=== PATIENT | female | born 1995 | race Caucasian/White ===

== ENCOUNTER → 2017-11-14 07:09 | Outpatient (CLI) | payer OTHER, SELFPAY ==
--- NOTE | 2017-11-14 07:21 | MRI_ITS ---
STUDY: MRI LEFT FOREFOOT WITHOUT CONTRAST REASON FOR EXAM: Painful great toe and ball of foot, splinter removal from ball of foot, injury 1 week ago. Evaluate for abscess, plantar plate tear. TECHNIQUE: Standardized fat and water weighted pulse sequences were obtained in all 3 orthogonal planes. COMPARISON: None. FINDINGS: Normal metatarsophalangeal joint of the hallux without demonstrated plantar plate injury. Normal tibial and fibular sesamoids, with normal sesamoids-first metatarsal articulations. Normal interphalangeal joint of the hallux. Normal proximal and distal phalanges of the great toe. Normal medial and lateral heads of the flexor hallucis brevis tendons. Normal flexor and extensor hallucis longus tendons. Normal second through fifth metatarsophalangeal (MTP) joints without demonstrated plantar plate injury. Normal interphalangeal joints of the second through fifth toes. Normal proximal, middle and distal phalanges of the second through fifth toes. Normal first through fourth intermetatarsal spaces. Normal flexor and extensor tendons of the second through fifth toes. Normal metatarsals. Normal intrinsic muscles of the forefoot. There is mild edema in the subcutis adipose space plantar to the second metatarsophalangeal joint (inversion recovery sagittal image 11) without fluid collection to indicate abscess. There is no signal void to indicate foreign body. MRI/Lower Ext/No Jt/w/o IMPRESSION: Mild edema in the subcutis adipose space plantar to the second metatarsophalangeal joint without soft tissue abscess or osteomyelitis. No demonstrated plantar plate injury. Electronically Signed: Min Lucero MD at 9:03 EST Tel , Service support ,
== END ==
PROVIDERS: Family Provider Family Medicine; PCP Family Medicine; Visit Provider Podiatrist Foot & Ankle Surgery
DX: S89.92XA Unspecified injury of left lower leg, initial encounter (principal); L02.612 Cutaneous abscess of left foot; L03.032 Cellulitis of left toe
CPT/HCPCS: 73718

== ENCOUNTER → 2019-07-10 11:41 | Outpatient (CLI) | payer OTHER, SELFPAY ==
[2016-08-02 18:54] VITALS: BMI 21.4
[2019-07-10 15:50] LABS: Absolute Lymphocyte Count 2.92 X10^3/uL (0.83-4.51); Absolute Neutrophil Count 2.1 X10^3/uL (2.0-7.7); Basophil# 0.07 X10^3/uL; Basophil% 1.2 % (0-1); Eosinophil# 0.22 X10^3/uL; Eosinophils% 3.9 % (0-5); Hematocrit 39.5 % (37-47); Hemoglobin 12.7 g/dL (12.0-15.0); Lymphocyte # 2.92 X10^3/ul (4.0); Lymphocyte % 51.1 % (19-41); Mean Corp Hgb Conc 32.2 g/dL (32-36); Mean Corpuscular Hgb 30.1 pg (27.0-32.0); Mean Corpuscular Volume 93.6 fL (81-99); Mean Platelet Vol. 11.4 fl (6.2-12.0); Monocyte# 0.35 X10^3/uL; Monocyte% 6.1 % (0-10); NRBC Flagged by Analyzer 0 % (0-5); Neutrophil # 2.14 X10^3/uL (2.7-7.7); Neutrophil % 37.5 % (47-70); POSITIVE COUNT YES; RBC Distribution Width CV 12.6 % (11.6-14.6); RBC Distribution Width SD 43.1 fl (35.1-43.9); Red Blood Count 4.22 M/mm3 (4.2-5.4); White Blood Count 5.7 K/mm3 (4.4-11.0)
[2019-07-10 15:51] LABS: Differential Indicated SCAN CRITERIA MET
[2019-07-10 15:58] LABS: Erythrocyte Sedimentation Rate 3 mm/hr (0-20)
[2019-07-10 16:13] LABS: ALB/GLOB Ratio 1.3 RATIO (0.9-2.4); AST(SGOT) 29 U/L (15-37); Alanine Aminotransfer ALT/SGPT 187 U/L (13-56); Albumin, Serum 4.1 g/dL (3.2-5.0); Alkaline Phosphatase 64 U/L (45-117); Anion Gap 8 (5-15); BUN 8 mg/dL (7-18); BUN/Creat Ratio 10.7 RATIO (10-20); CRP < 2.90 mg/L (0.0-3.0); Chloride 106 mmol/L (98-107); Creatinine, Serum 0.75 mg/dL (0.55-1.02); EST Glomerular Filtration Rate 103 mL/min (>60); Est Glom Filt Rate - Afr Amer 125 mL/min (>60); Globulin 3.1 g/dL (2.2-4.2); Glucose 69 mg/dL (74-106); Potassium 3.5 mmol/L (3.5-5.1); Protein, Total 7.2 g/dL (6.4-8.2); Sodium Level 143 mmol/L (136-145)
[2019-07-10 16:23] LABS: Differential Comment SCANNED; Platelet Estimate ADEQUATE (ADEQ)
[2019-07-15 16:07] LABS: Cytoplasmic Ab (C-ANCA) <1:20 titer (Neg:<1:20); Endomysial Antibody IgA Negative (Negative); Immunoglobulin A 77 mg/dL (87-352)
[2019-07-16 08:45] LABS: C1 EST Inhibitor, Functional 85 (.); Perinuclear Ab (P-ANCA) <1:20 titer (Neg:<1:20); t-Transglutaminase IgA <2 U/mL (0-3)
== END ==
PROVIDERS: Family Provider Family Medicine; PCP Family Medicine; Visit Provider Family Medicine
DX: R10.9 Unspecified abdominal pain (principal); L98.9 Disorder of the skin and subcutaneous tissue, unspecified; L50.0 Allergic urticaria
CPT/HCPCS: 36415; 80053; 82784; 83516; 85025; 85652; 86140; 86160; 86161; 86255; 86256

== ENCOUNTER 2023-11-17 18:13 | Emergency (ER) | payer OTHER, SELFPAY ==
[2023-11-17 18:15] VITALS: BP 140/96; PULSE 86; RESP 16; TEMP 36.3; O2SAT 97; BMI 19.5
--- NOTE | 2023-11-17 19:09 | EX.ED.DYSGE1 ---
HPI <HAYDEE Bloom - Last Filed: 11/17/23 20:22> History of Present Illness Chief Complaint: Lower Extremity Injury Narrative Narrative: Patient was moving car ramps into storage 2 days ago when she tripped and fell striking her left mckoy on the ramp. She had a focal area of swelling and bruising but was concerned because the bruising started spreading down her leg. She is able to ambulate and has no weakness or paresthesias. She is not on blood thinners. PFSH <HAYDEE Bloom - Last Filed: 11/17/23 20:22> PFSH Home Medications No Known/Unobtainable [No Known Home Medications] 08/02/16 [History Last Taken Unknown] Allergy/AdvReac Type Severity Reaction Status Date / Time latex Allergy Mild RASH Verified 11/17/23 18:15 Social History Smoking Status: Former smoker ROS <HAYDEE Bloom Last Filed: 11/17/23 20:22> ROS ED ROS Narrative Neuro: Negative for motor/sensory dysfunction. Skin: Negative for wound. Musc: Positive for left leg pain, trauma. Heme: Negative for easy bruising, bleeding, lymphadenopathy. EXAM <HAYDEE Bloom Last Filed: 11/17/23 20:22> Physical Exam Narrative Exam Narrative: CONST: Patient sitting in no acute distress. EYES: Normal inspection. NECK: Normal inspection. SKIN: Color normal, no abrasions or lacerations EXTREMITIES: Hematoma and tenderness on left proximal tibia with scattered ecchymosis down the leg towards the ankle. Full range of motion of knee ankle and foot, no tenderness of the joints. 5/5 strength, normal sensation, 2+ DP pulse. NEURO: Oriented x4. PSYCH: Normal affect. Const Vital Signs: 11/17/23 18:15 Temperature 97.4 F L Temperature Source Temporal Pulse Rate 86 Respiratory Rate 16 Blood Pressure 140/96 H Blood Pressure Mean 110 Pulse Ox 97 Oxygen Delivery Method Room Air <Dr. Wesly Dunbar DO - Last Filed: 11/17/23 19:35> Physical Exam Const Vital Signs: 11/17/23 18:15 Temperature 97.4 F L Temperature Source Temporal Pulse Rate 86 Respiratory Rate 16 Blood Pressure 140/96 H Blood Pressure Mean 110 Pulse Ox 97 Oxygen Delivery Method Room Air MDM <HAYDEE Bloom - Last Filed: 11/17/23 20:22> MDM Radiography Diagnostic Testing: Clinical Impression(s) from Imaging Studies Tibia/Fibula X-Ray 11/17/23 19:15 IMPRESSION: Mild anterior soft tissue swelling. No acute osseous abnormalities. Electronically Signed: Ruddy Yung at 20:11 EST , ED attending interpretation of left tibia/fibula shows no acute fracture or dislocation. <Dr. Wesly Dunbar DO - Last Filed: 11/17/23 19:35> MDM Radiography Diagnostic Testing: Clinical Impression(s) from Imaging Studies Tibia/Fibula X-Ray 11/17/23 19:15 IMPRESSION: Mild anterior soft tissue swelling. No acute osseous abnormalities. Electronically Signed: Ruddy VelásquezAndrés AvaDO piotr at 20:11 EST , Treatment and Re-Evaluation :: I have personally performed a face to face assessment of the patient and have reviewed the LEXX Note. I performed a substantive portion of the visit including all aspects of the following. My zeng findings include: History: Patient presents with bruising and swelling to the lower left leg that began 2 days ago. Patient states she tripped over a car ramp. Patient states that she noted some swelling and bruising to the proximal left leg. Patient states the bruising is progressing down her leg. Patient denies any new trauma or injury. Patient admits to some tingling at the initial site of injury. Patient describes her pain as dull at times and sharp at times. Patient states ice has been helping. Exam: Vital signs are stable. Patient is afebrile. Patient is in no acute distress. Musculoskeletal exam reveals small superficial abrasion of the anterior aspect of the proximal tibia on the left. There is some edema and ecchymosis in this area. There is some ecchymosis spreading distally to her lower leg. There is no active bleeding noted. There is full range of motion. Strength is 5/5 bilaterally in the lower extremities. There are no sensory deficits noted. Pedal pulses are equal bilaterally. Medical Decision Making: Differential diagnosis includes contusion, and occult fracture. X-rays of the left tib-fib were obtained to assess for occult fracture. There are 2 views. On my independent interpretation, there is no acute fracture. There are no foreign bodies noted. There is no soft tissue swelling noted. Radiologist also interpreted the x-rays and agrees. Patient was advised that this is most likely hematoma and the spreading of the ecchymosis distally is normal. Patient was instructed to continue to ice and elevate the left leg. Patient was instructed to continue Tylenol and ibuprofen as needed for pain. Patient was instructed to follow-up with her primary care physician in 5 to 7 days. Patient and mother understood and were agreeable with the plan. All questions were answered. Discharge Plan Triage Chief Complaint: Lower Extremity Injury ED Midlevel Provider: Betzy Wan ED Provider: Wesly Dunbar Dx/Rx/DC Orders Clinical Impression: Hematoma of left lower leg Instructions: Bruises (Contusions), ED Soft Tissue Contusion Prescriptions: No Action No Known Home Medications Primary Care Provider: Jose Enrique Gagnon Referrals: Jose Enrique Gagnon, [Primary Care Provider] - Activity Restrictions/Additional Instructions: The hematoma and bruising can take several weeks to resolve. With time the bruising moves down your leg due to gravity. This is nothing to be concerned about. Disposition Disposition: Home, Self Care Discharge Date/Time: 11/17/23 19:36
--- NOTE | 2023-11-17 19:15 | RAD_ITS ---
EXAM: XR LEFT TIBIA AND FIBULA, 2 VIEWS CLINICAL INDICATION: pain TECHNIQUE: Frontal and lateral views of the left tibia and fibula. COMPARISON: No relevant prior studies available. FINDINGS: BONES/JOINTS: No significant abnormality. No acute fracture. No subluxation. Normal alignment. Preservation of the joint space. No sclerotic or destructive changes observed. SOFT TISSUES: Mild anterior soft tissue swelling. No radiopaque foreign body. RAD/Tibia & Fibula 2 Views IMPRESSION: Mild anterior soft tissue swelling. No acute osseous abnormalities. Electronically Signed: Ruddy Yung DO at 20:11 EST ,
--- OUTSIDE RECORDS SUMMARY | 2023-11-17 19:34 | XMS RPT_ITS | CCD ---
Author Name Unknown Address [address] [place] [address] Organization [facility] Care Team Providers Care Bottling Room Worker Name Role Phone Yvon Cagle MD Primary Care Provider CHANTAL TABOR Referring Unavailable YVON CAGLE Primary Care Unavailable YVON CAGLE Primary Care Unavailable Allergies Allergy Classification Reported Allergen(s) Allergy Type Date of Onset Reaction(s) Facility (3 sources) House dust mite; Translations: [DUST MITES] Propensity to adverse reactions 11-13-2006 [facility] Work Phone: (3 sources) Mold Extract; Translations: [MOLD] Drug Allergy 11-13-2006 [facility] Work Phone: (3 sources) Tree; Translations: [TREES] Propensity to adverse reactions 11-13-2006 [facility] Work Phone: (3 sources) Ragweed; Translations: [RAGWEED] Propensity to adverse reactions 11-14-2006 [facility] Medications Current Medications Medication Drug Class(es) Dates Sig (Normalized) Sig (Original) amoxicillin 875 mg / clavulanate 125 mg oral tablet (2 sources) Penicillin-class Antibacterial Start: 06-08-2023 End: 06-15-2023 take 1 tablet by mouth twice daily amoxicillin-clavulan ic acid (AUGMENTIN) 875-125 mg per tablet Indications: Sinobronchitis Take 1 tablet by mouth twice daily for 7 days. 14 tablet 0 06/08/2023 06/15/2023 Active Problems Active Problems Problem Classification Problem Date Documented Da te Episodic/Chronic Other lower respiratory disease (1 source) Cough; Translations: [Acute cough] 06-08-2023 Episodic Other upper respiratory infections (1 source) Chronic sinusitis; Translations: [Chronic sinusitis, unspecified] 06-08-2023 Chronic Past or Other Problems Problem Classification Problem Date Documented Da te Episodic/Chronic Other complications of (2 sources) RhD negative; Translations: [Other specified related conditions, first trimester] Onset: 08-30-2016 08-30-2016 Episodic Other and delivery including normal (2 sources) Normal ; Translations: [Encounter for supervision of normal first , first trimester] Onset: 07-29-2016 07-29-2016 Episodic Residual codes; unclassified (2 sources) FH: Congenital anomaly; Translations: [Family history of other congenital malformations, deformations and chromosomal abnormalities] Onset: 07-14-2016 10-05-2021 Episodic Screening and history of mental health and substance abuse codes (2 sources) Stopped smoking; Translations: [Personal history of nicotine dependence] Onset: 07-14-2016 10-05-2021 Episodic Results Test Name Value Interpretation Reference Range Facil ity Vital Signs Date Time Vital Sign Value Performing Clinician Faci lity 06-08-2023 17:41-0400 Body temperature 98.8 [degF] Chantal Tabor APRN.HOSPITAL NURSE LIAISON Work Phone: [facility] 06-08-2023 17:41-0400 Body weight 68.77 kg Chantal Tabor APRN.CNP Work Phone: [facility] 06-08-2023 17:41-0400 Diastolic blood pressure 88 mm[Hg] Chantal Tabor APRN.HOSPITAL NURSE LIAISON Work Phone: [facility] 06-08-2023 17:41-0400 Heart rate 129 /min Chantal Tabor APRN.HOSPITAL NURSE LIAISON Work Phone: [facility] 06-08-2023 17:41-0400 Respiratory rate 18 /min Chantal Tabor APRN.HOSPITAL NURSE LIAISON Work Phone: [facility] 06-08-2023 17:41-0400 SaO2% (BldA) [Mass fraction] 99 % Chantal Tabor APRN.HOSPITAL NURSE LIAISON Work Phone: [facility] 06-08-2023 17:41-0400 Systolic blood pressure 142 mm[Hg] Chantal Tabor APRN.HOSPITAL NURSE LIAISON Work Phone: [facility] Encounters Encounter Date Encounter Type Care Provider Facility Start: 06-08-2023 End: 06-08-2023 ambulatory YVON CAGLE Facility:[facility] Start: 06-08-2023 End: 06-08-2023 Patient encounter procedure Chantal Tabor APRN.CNP Work Phone: [facility] Procedures Date Procedure Procedure Detail Performing Clinician Start: 06-08-2023 Radiologic exam ches t 2 views Chantal Tabor APRN.HOSPITAL NURSE LIAISON Work Phone: Plan of Treatment Date Care Activity Detail Author Start: 06-09-2023 Influenza vaccination INFLUENZA (#1) [facility] Start: 05-21-2023 PAP TESTING PAP TESTING [facility] Start: 10-09-2022 DEPRESSION ASSESSMENT DEPRESSION ASS ESSMENT [facility] Start: 06-19-2019 Urine microalbumin profile DTAP,TDAP,TD (7 - Td or Tdap) [facility] Start: 2015 HEPATITIS C SCREENING HEPATITIS C SC MANUEL [facility] Start: 2011 PEDS TO ADULT TRANSI TION ANNUAL ASSESSMENT PEDS TO ADULT TRANSITION ANNUAL ASSESSMENT [facility] Start: 2009 PEDS TO ADULT TRANSI TION INITIAL DISCUSSION PEDS TO ADULT TRANSITION INITIAL DISCUSSION [facility] Start: 2003 PNEUMOCOCCAL (1 - PCV) PNEUMOCOCCAL (1 - PCV) [facility] Start: 03-15-1998 COVID-19 VACCINE (#1) COVID-19 VACCI NE (#1) [facility] Immunizations Immunization Date Immunization Notes Care Provider Chang brown 03-13-2013 human papilloma viru s vaccine, quadrivalent Chantal Tabor HEATER PLANER OPERATOR.HOSPITAL NURSE LIAISON Work Phone: [facility] 03-13-2013 varicella virus vaccine Naseem Tabor HEATER PLANER OPERATOR.HOSPITAL NURSE LIAISON Work Phone: [facility] 05-25-2010 human papilloma viru s vaccine, quadrivalent Chantal Tabor HEATER PLANER OPERATOR.HOSPITAL NURSE LIAISON Work Phone: [facility] Work Phone: 06-19-2009 human papilloma viru s vaccine, quadrivalent Chantal Tabor HEATER PLANER OPERATOR.HOSPITAL NURSE LIAISON Work Phone: [facility] 06-19-2009 Meningococcal, MCV4, unspecified conjugate formulation(groups A, C, Y and W-135) Chantal Leander HEATER PLANER OPERATOR.[facility] Work Phone: [facility] 06-19-2009 tetanus toxoid, redu bertha diphtheria toxoid, and acellular pertussis vaccine, adsorbed Chantal Leander HEATER PLANER OPERATOR.HOSPITAL NURSE LIAISON Work Phone: [facility] 08-22-2008 influenza virus vaccine, unspecified formulation Chantal Leander HEATER PLANER OPERATOR.HOSPITAL NURSE LIAISON Work Phone: [facility] Work Phone: 08-14-2006 influenza virus vaccine, unspecified formulation Chantal Leander HEATER PLANER OPERATOR.[facility] Work Phone: [facility] Work Phone: 09-22-2005 influenza virus vaccine, unspecified formulation Chantal Leander HEATER PLANER OPERATOR.[facility] Work Phone: [facility] Work Phone: 05-20-2003 diphtheria, tetanus toxoids and acellular pertussis vaccine Chantal Leander HEATER PLANER OPERATOR.HOSPITAL NURSE LIAISON Work Phone: [facility] Work Phone: 05-20-2003 measles, mumps and rubella virus vaccine Chantal Leander HEATER PLANER OPERATOR.HOSPITAL NURSE LIAISON Work Phone: [facility] Work Phone: 05-20-2003 poliovirus vaccine, inactivated Chantal Leander HEATER PLANER OPERATOR.[facility] Work Phone: [facility] Work Phone: 05-06-1999 diphtheria, tetanus toxoids and acellular pertussis vaccine Chantal Leander HEATER PLANER OPERATOR.HOSPITAL NURSE LIAISON Work Phone: [facility] Work Phone: 05-06-1999 measles, mumps and rubella virus vaccine Chantal Leander HEATER PLANER OPERATOR.HOSPITAL NURSE LIAISON Work Phone: [facility] Work Phone: 05-06-1999 poliovirus vaccine, inactivated Chantal Leander HEATER PLANER OPERATOR.HOSPITAL NURSE LIAISON Work Phone: [facility] Work Phone: 02-12-1999 haemophilus influenz ae type b vaccine, HbOC conjugate Chantal Tabor HEATER PLANER OPERATOR.HOSPITAL NURSE LIAISON Work Phone: [facility] Work Phone: 02-12-1999 varicella virus vaccine Naseem Tabor HEATER PLANER OPERATOR.HOSPITAL NURSE LIAISON Work Phone: [facility] Work Phone: 03-24-1998 diphtheria, tetanus toxoids and acellular pertussis vaccine Chantal Tabor HEATER PLANER OPERATOR.HOSPITAL NURSE LIAISON Work Phone: [facility] Work Phone: 03-24-1998 haemophilus influenz ae type b vaccine, HbOC conjugate Chantal Leander HEATER PLANER OPERATOR.[facility] Work Phone: [facility] Work Phone: 03-24-1998 hepatitis B vaccine, pediatric or pediatric/adolescent dosage Chantal Leander HEATER PLANER OPERATOR.[facility] Work Phone: [facility] Work Phone: 01-09-1998 diphtheria, tetanus toxoids and acellular pertussis vaccine Chantal Tabor HEATER PLANER OPERATOR.[facility] Work Phone: [facility] Work Phone: 01-09-1998 haemophilus influenz ae type b vaccine, HbOC conjugate Chantal Tabor HEATER PLANER OPERATOR.[facility] Work Phone: [facility] Work Phone: 01-09-1998 trivalent poliovirus vaccine, live, oral Chantal Tabor HEATER PLANER OPERATOR.HOSPITAL NURSE LIAISON Work Phone: [facility] Work Phone: 1997 trivalent poliovirus vaccine, live, oral Chantal Tabor HEATER PLANER OPERATOR.HOSPITAL NURSE LIAISON Work Phone: [facility] Work Phone: 1997 diphtheria, tetanus toxoids and acellular pertussis vaccine Chantal Tabor HEATER PLANER OPERATOR.HOSPITAL NURSE LIAISON Work Phone: [facility] Work Phone: 1997 haemophilus influenz ae type b vaccine, HbOC conjugate Chantal Tabor APRN.HOSPITAL NURSE LIAISON Work Phone: [facility] Work Phone: 1997 hepatitis B vaccine, pediatric or pediatric/adolescent dosage Chantal Tabor HEATER PLANER OPERATOR.HOSPITAL NURSE LIAISON Work Phone: [facility] Work Phone: 1997 hepatitis B vaccine, pediatric or pediatric/adolescent dosage Chantal Tabor HEATER PLANER OPERATOR.HOSPITAL NURSE LIAISON Work Phone: [facility] Work Phone: Payers Date Payer Category Payer Private Health Insurance [employer] A ETNA PPO [id number] 2021-Present [phone] [address] [place] [address] PPO 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) [facility] Start: 2020 End: 06-08-2023 History of Social function [facility] Start: 2020 End: 06-08-2023 Tobacco use panel [facility] National Score (1-10 0), lower number is lower risk Not on file [facility] Start: 1997 Sex Assigned At Female C [facility] Start: 06-10-2020 Gender identity Identifies as female gender (finding) [facility] Start: 06-10-2020 Sexual orientation Heterosexual (brandon oreilly) [facility] Note 06-09-2023 Telephone Encounter - Madelyn Arnold MA - 06/09/2023 7:27 AM EDTTelephone Encounter - Chantal Tabor APRN.CNP - 06/08/2023 7:06 PM EDT Note Date & Type Note Facility 06-09-2023 Miscellaneous Notes Formattin g of this note might be different from the original. Patient notified of results as listed below, verbalized understanding. Madelyn Arnold MA Please notify that no pneumonia on xray. Will order antibiotics for prolonged illness. Follow up with primary care Monday if symptoms persisting. documented in this encounter [facility] Progress note 06-08-2023 Note Date & Type Note Facility 06-08-2023 Note HNO ID: [id number] Author: Gabi Caputo RT(R) Service: ? Author Type: Briquette Machine Operator Type: Progress Notes Filed: 06/08/2023 6:29 PM Note Text: Radiology Service Progress Note PATIENT NAME: Gesron Verduzco DATE OF SERVICE: June 08, 2023 TIME: 6:20 PM PATIENT IDENTITY VERIFICATION COMPLETED USING TWO (2) IDENTIFIERS: Name and Date of confirmed by patient verbally. FALL SCREENING: Has the patient had 2 falls in the last year or 1 fall with injury or currently using an Ambulatory Assistive Device (Walker, Cane, Wheelchair, Crutches, etc.)? No PATIENT GENDER DATA: Female. status: : No status: NO. PATIENT RELEVANT IMPLANT DATA REVIEWED: Yes RADIOLOGY DEPARTMENT: General X-ray: Exam(s) Completed: Chest X-Ray PERIPHERAL IV DATA: Not applicable SIGNED BY: RT Chung(R) June 08, 2023 6:20 PM [facility] Progress note 06-08-2023 Note Date & Type Note Facility 06-08-2023 Note HNO ID: [id number] Author: Chantal Tabor APRN.CNP Service: ? Author Type: Nurse Practitioner Type: Progress Notes Filed: 06/08/2023 7:09 PM Note Text: Subjective HPI HPI Gerson Verduzco is a 27 year old female who presents today for CC of cough, fever, vomiting. This started 10 days ago. Has tried otc medication for relief. Symptoms are worsened by nothing. No known sick exposures. Smoker. Denies possibility of being . .Patient presents with: Cough: Cough, congestion, fever and vomiting x 10 days PAST MEDICAL HISTORY Diagnosis Date fracture 2001 elbow, surgical pinning, playground accident PMH - PAST MEDICAL HISTORY OF Fx. elbow PMH - PAST MEDICAL HISTORY OF Pneumococcal Bacteremia PMH - PAST MEDICAL HISTORY OF 2002 normal color vision PAST SURGICAL HISTORY Procedure Laterality Date DILATION AND CURETTAGE DXAND/THER NONOBSTETRIC 09/2016 [facility] PAST SURGICAL HISTORY OF 2001 left elbow pinning s/p fracture TONSILLECTOMY AND ADENOIDECTOMY AGE 14/> 01/02/2012 ALLERGIES Dust Mites, Mold, Ragweed, and Tree Pollen [Trees] MEDICATIONS No prescriptions on file. FAMILY HISTORY Problem Relation Age of Onset Allergies Mother Allergic rhinitis Thyroid Father goiter Heart Father Diabetes Maternal Grandmother obesity Asthma Maternal Grandmother Hypertension Maternal Grandmother Kidney Disease Maternal Grandmother Headache Paternal Grandmother migraine Cancer Paternal Grandmother maternal and paternal side other (sickle cell) Paternal Grandmother paternal side Social History Tobacco Use Smoking status: Every Day Years: .5 Types: Cigarettes Start date: 07/07/2016 Smokeless tobacco: Never Vaping Use Vaping Use: Never used Substance Use Topics Alcohol use: No Drug use: No Review of Systems Constitutional: Positive for fever. HENT: Positive for congestion and sinus pain. Negative for ear pain, nosebleeds and sore throat. Respiratory: Positive for cough and sputum production. Negative for shortness of breath and wheezing. Cardiovascular: Negative for chest pain. Gastrointestinal: Positive for nausea and vomiting. Negative for abdominal pain and diarrhea. Genitourinary: Negative for dysuria and urgency. Musculoskeletal: Negative for neck pain. Skin: Negative for itching and rash. Neurological: Positive for dizziness. Objective Blood pressure 142/88, pulse (!) 129, temperature 37.1 ?C (98.8 ?F), temperature source Tympanic, resp. rate 18, weight 68.8 kg (151 lb 9.6 oz), last menstrual period 09/03/2021, SpO2 99 %. HR rechecked manual by provider 116. Physical Exam Constitutional: General: She is not in acute distress. Appearance: She is not toxic-appearing or diaphoretic. Comments: Well appearing HENT: Head: Normocephalic and atraumatic. Cardiovascular: Rate and Rhythm: Regular rhythm. Tachycardia present. Heart sounds: Normal heart sounds, S1 normal and S2 normal. Pulmonary: Effort: Pulmonary effort is normal. Breath sounds: Examination of the left-upper field reveals decreased breath sounds. Decreased breath sounds present. Abdominal: General: Bowel sounds are normal. Palpations: Abdomen is soft. There is no hepatomegaly or splenomegaly. Tenderness: There is no abdominal tenderness. Lymphadenopathy: Cervical: No cervical adenopathy. Right cervical: No superficial cervical adenopathy. Left cervical: No superficial cervical adenopathy. Neurological: Mental Status: She is alert and oriented to person, place, and time. Gait: Gait is intact. ASSESSMENT/PLAN: 1. Sinobronchitis - ICD9: 473.9, 490, ICD10: J32.9, J40 (primary diagnosis) - Will begin treatment with as per antibiotic as written, see orders - Supportive care with plenty of fluids, rest, and analgesia prn. - Follow up in 3-5 days if symptoms persist or worsen. - AMOXICILLIN 875 MG-POTASSIUM CLAVULANATE 125 MG TABLET 2. Acute cough - ICD9: 786.2, ICD10: R05.1 - XR CHEST 2V FRONTAL/LAT IMPRESSION: No acute radiographic abnormality. Dictated by : MD Chantal VARGAS APRN.HOSPITAL NURSE LIAISON [facility] History of Present illness Narrative 06-08-2023 Chantal Tabor APRN.SREE - 06/08/2023 6:07 PM EDT Note Date & Type Note Facility 06-08-2023 History of Presen t illness Narrative Subjective HPI HPI Gerson Verduzco is a 27 year old female who presents today for CC of cough, fever, vomiting. This started 10 days ago. Has tried otc medication for relief. Symptoms are worsened by nothing. No known sick exposures. Smoker. Denies possibility of being . .Patient presents with: Cough: Cough, congestion, fever and vomiting x 10 days PAST MEDICAL HISTORY Diagnosis Date fracture 2002 elbow, surgical pinning, playground accident PMH - PAST MEDICAL HISTORY OF Fx. elbow PMH - PAST MEDICAL HISTORY OF Pneumococcal Bacteremia PMH - PAST MEDICAL HISTORY OF 2002 normal color vision PAST SURGICAL HISTORY Procedure Laterality Date DILATION & CURETTAGE DX&/THER NONOBSTETRIC 09/2016 [facility] PAST SURGICAL HISTORY OF 2001 left elbow pinning s/p fracture TONSILLECTOMY & ADENOIDECTOMY AGE 14/> 01/02/2012 ALLERGIES Dust Mites, Mold, Ragweed, and Tree Pollen [Trees] MEDICATIONS No prescriptions on file. FAMILY HISTORY Problem Relation Age of Onset Allergies Mother Allergic rhinitis Thyroid Father goiter Heart Father Diabetes Maternal Grandmother obesity Asthma Maternal Grandmother Hypertension Maternal Grandmother Kidney Disease Maternal Grandmother Headache Paternal Grandmother migraine Cancer Paternal Grandmother maternal and paternal side other (sickle cell) Paternal Grandmother paternal side Social History Tobacco Use Smoking status: Every Day Years: .5 Types: Cigarettes Start date: 07/07/2016 Smokeless tobacco: Never Vaping Use Vaping Use: Never used Substance Use Topics Alcohol use: No Drug use: No Review of Systems Constitutional: Positive for fever. HENT: Positive for congestion and sinus pain. Negative for ear pain, nosebleeds and sore throat. Respiratory: Positive for cough and sputum production. Negative for shortness of breath and wheezing. Cardiovascular: Negative for chest pain. Gastrointestinal: Positive for nausea and vomiting. Negative for abdominal pain and diarrhea. Genitourinary: Negative for dysuria and urgency. Musculoskeletal: Negative for neck pain. Skin: Negative for itching and rash. Neurological: Positive for dizziness. Objective Blood pressure 142/88, pulse (!) 129, temperature 37.1 C (98.8 F), temperature source Tympanic, resp. rate 18, weight 68.8 kg (151 lb 9.6 oz), last menstrual period 09/03/2021, SpO2 99 %. HR rechecked manual by provider 116. Physical Exam Constitutional: General: She is not in acute distress. Appearance: She is not toxic-appearing or diaphoretic. Comments: Well appearing HENT: Head: Normocephalic and atraumatic. Cardiovascular: Rate and Rhythm: Regular rhythm. Tachycardia present. Heart sounds: Normal heart sounds, S1 normal and S2 normal. Pulmonary: Effort: Pulmonary effort is normal. Breath sounds: Examination of the left-upper field reveals decreased breath sounds. Decreased breath sounds present. Abdominal: General: Bowel sounds are normal. Palpations: Abdomen is soft. There is no hepatomegaly or splenomegaly. Tenderness: There is no abdominal tenderness. Lymphadenopathy: Cervical: No cervical adenopathy. Right cervical: No superficial cervical adenopathy. Left cervical: No superficial cervical adenopathy. Neurological: Mental Status: She is alert and oriented to person, place, and time. Gait: Gait is intact. ASSESSMENT/PLAN: 1. Sinobronchitis - ICD9: 473.9, 490, ICD10: J32.9, J40 (primary diagnosis) - Will begin treatment with as per antibiotic as written, see orders - Supportive care with plenty of fluids, rest, and analgesia prn. - Follow up in 3-5 days if symptoms persist or worsen. - AMOXICILLIN 875 MG-POTASSIUM CLAVULANATE 125 MG TABLET 2. Acute cough - ICD9: 786.2, ICD10: R05.1 - XR CHEST 2V FRONTAL/LAT IMPRESSION: No acute radiographic abnormality. Dictated by : MD Chantal VARGAS APRN.HOSPITAL NURSE LIAISON documented in this encounter [facility] History of Past illness Narrative 11-09-2006 Note Date & Type Note Facility documented as of this encounter (statuses as of 06/09/2023) [facility] History of Past illness Narrative 11-09-2006 Note Date & Type Note Facility documented as of this encounter (statuses as of 06/09/2023) [facility] Evaluation note Note Date & Type Note Facility documented in this encounter [facility] Summary Purpose Family History No Family History Records Found Advance Directives No Advanced Directives Records Found Additional Source Comments Source Comments (unrecognize d section and content) In the event this informatio n is protected by the Federal Confidentiality of Alcohol and Drug Abuse Patient Records regulations: The Federal rules restrict any use of the information to criminally investigate or prosecute any alcohol or drug abuse patient.[facility] the event this information is protected by the Federal Confidentiality of Alcohol and Drug Abuse Patient Records regulations: The Federal rules restrict any use of the information to criminally investigate or prosecute any alcohol or drug abuse patient.[facility] Reason for Visit (unrecogniz ed section and content) Reason Comments Results Care Teams (unrecognized sec tion and content) Bottling Room Worker Relationship Specialty Start Date End Date Yvon Cagle MD PCP - General Family Medicine 06/30/16 INFORMATION SOURCE (unrecogn ized section and content) FOR RECORDS PERTAINING TO PATIENTS WHO ARE OR HAVE BEEN ENROLLED IN A CHEMICAL DEPENDENCY/SUBSTANCEABUSE PROGRAM, SOME INFORMATION MAY BE OMITTED. This clinical summary was aggregated from multiple sources. Caution should be exercised in using it in the provision of clinical care. This summary normalizes information from multiple sources, and as a consequence, information in this document may materially change the coding, format and clinical context of patient data. In addition, data may be omitted in some cases. CLINICAL DECISIONS SHOULD BE BASED ON THE PRIMARY CLINICAL RECORDS. [facility]. provides no warranty or guarantee of the accuracy or completeness of information in this document.
== END 2023-11-17 19:36 | disposition home or self-care (01) ==
PROVIDERS: Emergency Provider Emergency Medicine; PCP Family Medicine; Visit Provider Emergency Medicine
DX: S80.12XA Contusion of left lower leg, initial encounter (principal); W18.09XA Striking against other object with subsequent fall, initial encounter; Y93.89 Activity, other specified; Y99.8 Other external cause status; Z87.891 Personal history of nicotine dependence
CPT/HCPCS: 73590; 99282